=== PATIENT | female | born 1970 | race Caucasian/White ===

== ENCOUNTER 2016-11-18 15:41 | Emergency (ER) | payer SELFPAY ==
[~2016-11-18] VITALS: Ht 152.4 cm; Wt 59.3 kg
[2016-11-18 15:52] VITALS: Ht 152.4 cm; Wt 59.3 kg
[2016-11-18] MEDS ORDERED: METOCLOPRAMIDE 10 MG INJ IV STA (18:24)
[2016-11-18] MEDS ORDERED: DIPHENHYDRAMINE 50 MG INJ IV STA (18:24)
[2016-11-18] MEDS ORDERED: KETOROLAC 30 MG INJ IV STA (18:24)
[2016-11-18] MEDS ORDERED: SOD CHLORIDE 0.9% 1,000 ML IV STA (18:24)
[2016-11-18 18:53] LABS: ADD SCAN DIFF NO
--- NOTE | 2016-11-18 18:54 | RADRPT ---
PROCEDURE: CT Head without contrast. CLINICAL INDICATION: Headaches TECHNIQUE: The study was performed utilizing a GE 64-slice multidetector CT scanner. Direct spiral axial CT images of the brain were obtained from the vertex to the skull base without contrast. Cor onal and sagittal reformat images are provided. The CTDI vol is 39.64 mGy and the DLP is 554.95 mGy -cm. The images were reviewed on a PACS workstation. COMPARISON: No prior studies are available for comparison. FINDINGS: The ventricles and cortical sulci are within normal limits. The whitten-white matter differentiation i s maintained. No intra or extra-axial fluid collection or mass effect or shift in the midline struc tures is seen. Near complete opacification of the left sphenoid sinus is seen. Very mild mucosal t hickening in the right sphenoid sinus is seen. The remaining visualized paranasal sinuses, mastoid air cells, orbits, and calvarium are unremarkable. IMPRESSION: 1. No acute intracranial pathology. 2. Near complete opacification of the left sphenoid sinus. RPTAT: HPN[facility] Physician Janki Date Time Electronically viewed and signed by Physician Janki on 11/18/2016 18:54 /
[2016-11-18 18:58] LABS: BASOPHILS % 0.1 % (0.0-2.0); EOSINOPHILS % 0.1 % (0.0-7.0); HEMOGLOBIN 13.6 g/dl (12.0-16.0); LYMPHOCYTES # 1.3 10^3/ul (0.8-2.9); LYMPHOCYTES % 16.7 % (15.0-51.0); MEAN CORPUSCULAR HEMOGLOBIN 31.1 pg (29.0-33.0); MEAN CORPUSCULAR HGB CONC 33.2 g/dl (32.0-37.0); MEAN CORPUSCULAR VOLUME 93.8 fl (82.0-101.0); MEAN PLATELET VOLUME 10.4 fl (7.4-10.4); MONOCYTE # 0.4 10^3/ul (0.3-0.9); MONOCYTES % 4.4 % (0.0-11.0); NEUTROPHIL # 6.2 10^3/ul (1.6-7.5); NEUTROPHILS % 78.3 % (39.0-77.0); PLATELET COUNT 237 10^3/UL (140-415); RED BLOOD COUNT 4.37 10^6/ul (4.20-5.40); RED CELL DISTRIBUTION WIDTH 13.1 % (11.5-14.5)
[2016-11-18 19:04] LABS: INR 0.91; PROTIME 12.3 Sec (12.2-14.2)
[2016-11-18 19:06] LABS: PARTIAL THROMBOPLASTIN TIME 25.6 Sec (25.0-35.0)
[2016-11-18] MEDS ORDERED: NAPR-260 PO (19:14)
--- NOTE | 2016-11-18 19:14 | ERD ---
ER Documentation Chief Complaint Date/Time DATE: 11/18/16 TIME: 19:12 Chief Complaint headche for past week, perrla, normal neuro HPI This is a 46-year-old female presents to the ER with a headache for the last week. Patient has a past medical history of recurrent headaches. Headache is located in the frontal area and radiated to the back. Patient states that pain is severe and constant she took Advil however did not work. Patient states that she had one episode of nonbilious nonbloody vomiting. She does admit to some photophobia. Patient denies any fevers or chills. He is currently fighting upper respiratory infection also has a dry cough. ROS 12 point review of systems was done, all negative except per HPI. Allergies Allergies: Coded Allergies: No Known Allergy (Unverified , 11/18/16) PMhx/Soc Medical and Surgical Hx: pt denies Medical Hx History of Surgery: Yes (CHOLECYSTECTOMY ) Anesthesia Reaction: No Hx Neurological Disorder: No Hx Respiratory Disorders: No Hx Cardiac Disorders: No Hx Psychiatric Problems: No Hx Miscellaneous Medical Probl: No Hx Alcohol Use: No Hx Substance Use: No Hx Tobacco Use: No Smoking Status: Never smoker Physical Exam Vitals Vital Signs Date Time Temp Pulse Resp B/P Pulse Ox O2 Delivery O2 Flow Rate FiO2 11/18/16 15:52 97.8 99 18 139/69 100 Physical Exam GENERAL: The patient is well developed and appropriate for usual state of health , in no apparent distress. HEENT: Atraumatic. Conjunctivae are pink. Pupils equal, round, and reactive to light. Extraocular muscles are grossly intact. Bilateral tympanic membranes are clear with no evidence of erythema, bulging or perforation. No sinus tenderness. NECK: C-spine is soft and supple. There is no cervical lymphadenopathy. CHEST: Clear to auscultation bilaterally. There are no rales, wheezes or rhonchi. HEART: Regular rate and rhythm. No murmurs, clicks, rubs or gallops. EXTREMITIES: Equal pulses bilaterally. There is no peripheral clubbing, cyanosis or edema. No focal swelling or erythema. Full range of motion. Grossly neurovascularly intact. NEURO: Alert and oriented. Cranial nerves II through XII are intact. Motor strength in all 4 extremities with 5/5 strength. Sensation grossly intact. Normal speech and gait. Negative Rhomberg. +2 DTRs. SKIN: There is no apparent rash or petechia. The skin is warm and dry. Result Diagram: 11/18/16 1835 Results 24 hrs Laboratory Tests Test 11/18/16 18:35 Activated Partial Thromboplast Time 25.6Sec Basophils # 0.010^3/ul Basophils % 0.1% Eosinophils # 0.010^3/ul Eosinophils % 0.1% Hematocrit 41.0% Hemoglobin 13.6g/dl INR International Normalized Ratio 0.91 Lymphocytes # 1.310^3/ul Lymphocytes % 16.7% Mean Corpuscular Hemoglobin 31.1pg Mean Corpuscular Hemoglobin Concent 33.2g/dl Mean Corpuscular Volume 93.8fl Mean Platelet Volume 10.4fl Monocytes # 0.410^3/ul Monocytes % 4.4% Neutrophils # 6.210^3/ul Neutrophils % 78.3% Nucleated Red Blood Cells # 0.010^3/ul Nucleated Red Blood Cells % 0.0/100WBC Platelet Count 45820^3/UL Prothrombin Time 12.3Sec Prothrombin Time Ratio 1.0 Red Blood Count 4.3710^6/ul Red Cell Distribution Width 13.1% White Blood Count 8.010^3/ul Current Medications Medications (Trade) Dose Ordered Sig/Roland Route PRN Reason Start Time Stop Time Status Last Admin Dose Admin Sodium Chloride (NS) 1,000 ml @ 1,000 mls/hr Q1H STAT IV 11/18/16 18:24 11/18/16 19:23 11/18/16 18:57 Metoclopramide HCl (Reglan) 10 mg ONCE STAT IV 11/18/16 18:24 11/18/16 18:25 DC 11/18/16 18:57 Ketorolac Tromethamine (Toradol) 30 mg ONCE STAT IV 11/18/16 18:24 11/18/16 18:25 DC 11/18/16 18:57 Diphenhydramine HCl (Benadryl) 25 mg ONCE STAT IV 11/18/16 18:24 11/18/16 18:25 DC 11/18/16 18:57 Procedures/MDM Differential Diagnosis includes but is not limited to; tension headache, migraine headache, cluster headache, sinus headache, nonspecific febrile headache, trigeminal neurologia, subdural hematoma, subarachnoid bleeding, meningitis, encephalitis. Patient is neurologically intact with no focal neurological deficits. This is a 46-year-old female presents to the ER with a headache. This is likely migraine headache. This may also be febrile headache as she has had an upper respiratory infection. At this time I do not believe patient is having an acute intracranial emergency. Patient is afebrile and well -appearing. She will be sent home with naproxen. Patient is to follow-up with her primary care doctor within 1-2 days or return to ER sooner if symptoms worsen. My medical decision making was shared with the patient she understands and agrees with plan Departure Diagnosis: Primary Impression: Headache Condition: Stable DEMOND VARGAS Nov 18, 2016 19:14
[2016-11-18 19:17] LABS: CREATININE 0.45 mg/dl (0.44-1.00)
[2016-11-18 19:18] LABS: CALCIUM 9.7 mg/dl (8.4-10.2)
[2016-11-18 19:49] VITALS: BP 127/68; PULSE 81; RESP 16
== END 2016-11-18 19:51 | disposition home or self-care (01) ==
LOC: FTE 15:41
DX: R51 Headache (principal)
CPT/HCPCS: 36415; 70450; 80048; 85025; 85610; 85730; 96374; 96375; 99285; J1200; J1885; J2765; J7030